=== PATIENT | male | born 1990 | race Caucasian/White ===

== ENCOUNTER 2024-10-29 13:48 | Emergency (ER) | payer OTHER ==
[~2024-10-29] VITALS: Ht 190.5 cm; Wt 71.0 kg
[2024-10-29] MEDS ORDERED: AMPHETAMINE SAL15 MG PO (14:00)
[2024-10-29 15:30] LABS: BLOOD/HGB, URINE NEGATIVE (Negative); KETONE, URINE NEGATIVE (Negative); LEUK ESTERASE, URINE NEGATIVE (negative); NITRITE, URINE NEGATIVE (negative)
[2024-10-29 15:39] LABS: BACTERIA, URINE NONE SEEN /hpf (negative); CASTS, URINE NONE SEEN \\lpf; CRYSTALS, URINE NONE SEEN (0-1+); EPITHELIAL CELLS, URINE 0 /lpf (0-1+); REFLEX CULTURE, URINE No (No)
[2024-10-29 16:04] VITALS: BP 126/90
== END 2024-10-29 16:04 | disposition home or self-care (01) ==
LOC: ED 13:48
PROVIDERS: Emergency Medicine
DX: I86.1 Scrotal varices (principal); Z79.899 Other long term (current) drug therapy; Z88.5 Allergy status to narcotic agent
CPT/HCPCS: 76870; 81001; 99284